=== PATIENT | female | born 1950 | race Caucasian/White ===

== ENCOUNTER → 2016-11-09 | Day surgery (SDC) | payer MEDICARE, MEDICAID ==
[~2016-11-09] MED LIST: Lactated Ringers 1,000 ML IV SCH; Propofol 200 MG/20 ML SDV IV ONE
[2016-11-09 08:13] VITALS: BP 151/73
--- NOTE | 2016-11-09 11:37 | OR ---
DATE OF OPERATION: 11/09/2016 PREOPERATIVE DIAGNOSIS: FOLLOW UP POLYPS. POSTOPERATIVE DIAGNOSIS: FOLLOW UP POLYPS. SURGEON: Abhay Pitts MD PROCEDURE: FOLLOWING COLONOSCOPY. ANESTHESIA: RECOVERY ROOM RN due to obesity and chronic dizziness. COMPLICATIONS: None. SPECIMEN: None. FINDINGS: Normal full-length colonoscopy. RECOMMENDATIONS: Followup colonoscopy in 5 years. INDICATIONS: The patient has a history of a large polyp removal. She is in for a 3-year followup scope. DESCRIPTION OF PROCEDURE: The patient was prepped and draped, placed in the left lateral decubitus position. A lubricated Olympus colonoscope was inserted and easily advanced to the cecum. Direct visualization of the ileocecal valve and appendiceal orifice was accomplished. The bowel prep was fine. Upon withdrawal of the scope, the entire colon was visualized well throughout the length. I found no polyps, mass, ulceration, bleeding sites. No vascular abnormalities or signs of colitis. There were no diverticula, masses, polyps, or otherwise. The rectal vault was unremarkable. Retroflexion of the scope in the rectum showed no anal lesions. Air was then suctioned. Scope removed without complications. TOSIN/SAMUEL /[id number]
== END ==
LOC: CC.SDS 06:14
PROVIDERS: ATTEND Family Medicine
DX: Z12.11 Encounter for screening for malignant neoplasm of colon (principal); E66.9 Obesity, unspecified; R42 Dizziness and giddiness; F32.9 Major depressive disorder, single episode, unspecified; K21.9 Gastro-esophageal reflux disease without esophagitis; I10 Essential (primary) hypertension; E03.9 Hypothyroidism, unspecified; E11.9 Type 2 diabetes mellitus without complications; Z88.1 Allergy status to other antibiotic agents; Z88.8 Allergy status to other drugs, medicaments and biological substances; Z79.82 Long term (current) use of aspirin; Z79.899 Other long term (current) drug therapy; Z79.84 Long term (current) use of oral hypoglycemic drugs; Z98.890 Other specified postprocedural states; Z96.659 Presence of unspecified artificial knee joint; Z72.0 Tobacco use
CPT/HCPCS: 82962; G0105; J2704; J7120; 00810